=== PATIENT | male | born 1970 | race Caucasian/White ===

== ENCOUNTER 2024-08-10 23:34 | Emergency (ER) | payer BC, OTHER ==
[~2024-08-10] VITALS: Ht 180.3 cm; Wt 90.3 kg
[2024-08-10 23:49] VITALS: BP_SYST 176; PULSE 98; RESP 20; TEMP 98; O2SAT 98
[2024-08-11] MEDS: NACL 0.9% 1,000 ML IV ONE (00:30)
[2024-08-11] MEDS: KETOROLAC TROMETHAMINE 30 MG VIAL IVP ONE (00:41)
[2024-08-11 00:42] LABS: HEMOGLOBIN 14.7 g/dL (14.0-18.0); PLATELET COUNT (AUTO) 166 K/uL (130-430); WHITE BLOOD COUNT (AUTO) 4.4 K/uL (4.8-10.8)
[2024-08-11 00:44] LABS: ALBUMIN 3.5 g/dL (3.4-4.8); BILIRUBIN,DIRECT 0.2 mg/dL (0.0-0.3); CALCIUM 8.7 mg/dL (8.4-11.0); CREATININE 1.01 mg/dL (0.55-1.30); POTASSIUM 3.5 mmol/L (3.5-5.1); TOTAL BILIRUBIN 0.5 mg/dL (0.0-1.0); TOTAL PROTEIN, SERUM 6.5 g/dL (6.4-8.3)
[2024-08-11 00:47] LABS: BASOPHILS % (AUTO) 0.2 % (0.0-2.0); EOSINOPHILS # (AUTO) 0.1 K/uL (0.0-0.4); EOSINOPHILS % (AUTO) 2.9 % (0.0-4.0); HEMATOCRIT 41.9 % (36-54); LYMPHOCYTES # (AUTO) 1.1 K/uL (1.0-5.5); MEAN CORPUSCULAR HEMOGLOBIN 34 pg (27-31); MEAN CORPUSCULAR HGB CONC 35 % (32-36); MEAN CORPUSCULAR VOLUME 98 fL (79.0-98.0); MONOCYTES # (AUTO) 0.4 K/uL (0.0-1.0); MONOCYTES % (AUTO) 8.3 % (1.7-9.3); NEUTROPHILS # (AUTO) 2.8 K/uL (1.8-7.7); NEUTROPHILS % (AUTO) 63.6 % (40.0-70.0); RED BLOOD CELL COUNT(AUTO) 4.29 MIL/uL (4.2-6.2)
[2024-08-11] MEDS: ONDANSETRON HCL 4 MG/2 ML VIAL IVP ONE (01:30)
[2024-08-11] MEDS: ENALAPRILAT DIHYDRATE 1.25 MG/ML VIAL IVP ONE (01:49)
[2024-08-11 01:50] LABS: BILIRUBIN,URINE NEGATIVE (NEGATIVE); BLOOD, URINE NEGATIVE (NEGATIVE); CLARITY/URINE CLEAR (CLEAR); COLOR,URINE YELLOW (YELLOW); GLUCOSE,URINE NEGATIVE (NEGATIVE); KETONES,URINE 1+ (NEGATIVE); LEUKOCYTE ESTERASE ,URINE NEGATIVE (NEGATIVE); NITRITE, URINE NEGATIVE (NEGATIVE); PROTEIN URINE NEGATIVE (NEGATIVE)
[2024-08-11] MEDS ORDERED: LOSA-415 PO (02:34)
[2024-08-11] MEDS ORDERED: AMLO2.5T2 PO (02:34)
[2024-08-11 02:43] VITALS: BP_SYST 112; PULSE 84; RESP 18; TEMP 98; O2SAT 95
== END 2024-08-11 02:43 | disposition home or self-care (01) ==
LOC: SED 23:34
DX: E86.0 Dehydration (principal); I10 Essential (primary) hypertension; R55 Syncope and collapse; F32.9 Major depressive disorder, single episode, unspecified; Z91.041 Radiographic dye allergy status; Z88.1 Allergy status to other antibiotic agents; Z79.899 Other long term (current) drug therapy
CPT/HCPCS: 99285; 80076; 80048; 81001; 85025; 36415; 81003; 96374; 70450; 96375; J1885; J7030; J2405